=== PATIENT | male | born 1940 | race Caucasian/White ===

== ENCOUNTER 2017-02-19 15:34 | Outpatient (CLI) | payer MEDICARE, BC ==
[2017-02-19 17:40] LABS: Bilirubin Negative (Negative); Blood, Urine Negative (Negative); Clarity Clear (Clear); Glucose, Urine (Dipstick) Negative (Negative); Leukocyte Negative (Negative); Nitrite Negative (Negative); Protein, Urine (Dipstick) Negative (Neg-Trace); Urobilinogen 0.2 mg/dL (0.2-1.0); pH, Urine 6.5 (5.0-9.0)
[2017-02-19 17:54] LABS: ALT (SGPT) 20 U/L (8-55); AST (SGOT) 26 U/L (5-34); Albumin 4.7 g/dL (3.4-4.8); Alkaline Phosphatase 92 U/L (40-150); Anion Gap 19 mmol/L (10-20); BUN (Urea Nitrogen) 13 mg/dL (8.4-25.7); Bilirubin, Total 0.9 mg/dL (0.2-1.2); Calc. Creatinine Clearance 0 mL/min (70-130); Calcium 9.9 mg/dL (7.8-10.44); Carbon Dioxide 20 mmol/L (23-31); Cardiac Risk 2.8 (Less than 4.5); Chloride 98 mmol/L (98-107); Cholesterol 191 mg/dl (< 200 Desired); Estimated GFR-MDRD 70; Globulin 3.5 g/dL (2.4-3.5); Glucose 92 mg/dL (83-110); HDL Cholesterol 69 mg/dL (>60 Neg Risk); LDL Cholesterol, Calculated 74 mg/dL; Potassium 4.4 mmol/L (3.5-5.1); Protein, Total 8.2 g/dL (5.8-8.1); Sodium 133 mmol/L (136-145); Triglycerides 238 mg/dL (Less than 150); Uric Acid 4.8 mg/dL (3.5-7.2)
[2017-02-19 19:58] LABS: #Basophils 0.1 thou/uL (0.0-0.2); #Eosinphils 0.2 thou/uL (0.0-0.7); #Lymphocytes 1.7 thou/uL (1.20-3.40); #Monocytes 0.8 thou/uL (0.11-0.59); #Neutrophils 5.2 thou/uL (1.40-6.50); %Basophils 1.7 % (0.0-1.0); %Lymphocytes 20.7 % (21.0-51.0); %Monocytes 9.4 % (0.0-10.0); %Neutrophils 65.1 % (42.0-75.0); Hemoglobin 14.7 g/dL (14.0-18.0); Mean Corpuscular HGB CONC 31.6 g/dL (32.0-36.0); Mean Corpuscular Hemoglobin 30.2 pg (27.0-31.0); Mean Corpuscular Volume 95.4 fl (80.0-94.0); Mean Platelet Volume 5.3 fL (7.4-10.4); Platelet Count 237 thou/uL (130-400); RBC Distribution Width 12.3 % (11.5-14.5); Red Blood Cell (RBC) Count 4.89 mill/uL (4.70-6.10)
== END 2017-02-19 15:35 | disposition home or self-care (01) ==
LOC: NAVSJIPCSP 15:34
PROVIDERS: ATTEND Internal Medicine
DX: E03.9 Hypothyroidism, unspecified (principal); E78.5 Hyperlipidemia, unspecified; I10 Essential (primary) hypertension
CPT/HCPCS: 80053; 80061; 81003; 84443; 84550; 85025

== ENCOUNTER 2018-01-27 13:53 | Outpatient (CLI) | payer MEDICARE, BC ==
--- NOTE | 2018-01-27 17:03 | ULT ---
CAROTID ARTERIAL DOPPLER ULTRASOUND: 01/27/18 COMPARISON: None. HISTORY: Left carotid bruit. TECHNIQUE: Multiplanar johnson scale, sonographic imaging of the arterial structures of the neck obtained with colo r flow and spectral analysis. FINDINGS: There is scattered atherosclerotic calcification/atherosclerotic plaque within the distal CCA and the proximal ICA bilaterally. Antegrade blood flow and normal arterial waveforms are documented within the carotid and the vertebra l system bilaterally. VESSELS PSV (cm/s) EDV (cm/s) Right CCA 71 12 Right ICA 111 28 Right ECA 91 7 Left CCA 75 13 Left ICA 52 14 Left ECA 118 0 ICA/CCA ratios 1.4 on the right and 0.8 on the left. IMPRESSION: No hemodynamically significant stenosis on the basis of sonographic velocity criteria. POS: [facility]
== END 2018-01-27 13:54 | disposition home or self-care (01) ==
LOC: NAV ULT 13:53
PROVIDERS: ATTEND Internal Medicine
DX: R09.89 Other specified symptoms and signs involving the circulatory and respiratory systems (principal)
CPT/HCPCS: 93880

== ENCOUNTER 2019-06-06 13:18 | Emergency (ER) | payer MEDICARE, BC ==
[2019-06-06] MEDS ORDERED: Lidocaine 1% (PF) 30 ML VIAL ONE (13:39)
[2019-06-06] MEDS ORDERED: Bacitracin 1 PK ONE (14:15)
== END 2019-06-06 14:38 | disposition home or self-care (01) ==
LOC: NAV ERS 13:18
DX: S81.812A Laceration without foreign body, left lower leg, initial encounter (principal); E78.5 Hyperlipidemia, unspecified; M10.9 Gout, unspecified; I10 Essential (primary) hypertension; M48.061 Spinal stenosis, lumbar region without neurogenic claudication; Z79.899 Other long term (current) drug therapy; W26.8XXA Contact with other sharp object(s), not elsewhere classified, initial encounter; Y93.39 Activity, other involving climbing, rappelling and jumping off
CPT/HCPCS: 12002; J2001

== ENCOUNTER 2020-09-21 22:26 | Emergency (ER) | payer MEDICARE, BC ==
--- NOTE | 2020-09-21 23:12 | CT ---
CT of thehead: 09/21/2020 COMPARISON:None available HISTORY:Injury, trauma, pain TECHNIQUE: Serial axial CT imaging at2.5 mm intervals from thevertex through skull base without contr ast. Coronal and sagittal reformatted imaging obtained Findings:The imaged paranasal sinuses and mastoid air cells are well-aerated. There is no displaced c alvarial fracture. Scalp constantino are noted posteriorly on the left in the parietal region. No displaced calvarial fracture, intracranial hemorrhage, midline shift, or mass effect. Impression:No intracranial hemorrhage or displaced calvarial fracture.
== END 2020-09-21 23:40 | disposition home or self-care (01) ==
LOC: NAV ERS 22:26
DX: S01.01XA Laceration without foreign body of scalp, initial encounter (principal); H17.89 Other corneal scars and opacities; E03.9 Hypothyroidism, unspecified; E78.5 Hyperlipidemia, unspecified; M10.9 Gout, unspecified; M48.00 Spinal stenosis, site unspecified; I10 Essential (primary) hypertension; Z79.899 Other long term (current) drug therapy; W18.09XA Striking against other object with subsequent fall, initial encounter
CPT/HCPCS: 12001; 70450

== ENCOUNTER 2020-09-27 10:10 | Emergency (ER) | payer MEDICARE, BC | END 2020-09-27 10:35 | disposition home or self-care (01) | LOC: NAV ERS 10:10 | DX: S01.01XD Laceration without foreign body of scalp, subsequent encounter (principal); E03.9 Hypothyroidism, unspecified; E78.5 Hyperlipidemia, unspecified; E78.00 Pure hypercholesterolemia, unspecified; M10.9 Gout, unspecified; I10 Essential (primary) hypertension; Z79.899 Other long term (current) drug therapy ==

== ENCOUNTER 2022-09-05 15:20 | Outpatient (CLI) | payer MEDICARE, BC | END 2022-09-05 15:21 | disposition home or self-care (01) | LOC: NAV RAD 15:20 | PROVIDERS: ATTEND Family Medicine | DX: M25.551 Pain in right hip (principal); M16.11 Unilateral primary osteoarthritis, right hip ==

== ENCOUNTER 2025-04-12 09:29 | Emergency (ER) | payer MEDICARE, BC ==
[2025-04-12] MEDS ORDERED: Bacitracin 1 PK ONE (09:55)
[2025-04-12] MEDS ORDERED: Boostrix 0.5 ML (Tdap) VIAL (>/=7 yrs of age) ONE (09:56)
== END 2025-04-12 10:18 | disposition home or self-care (01) ==
LOC: NAV ERS 09:29
DX: S41.111A Laceration without foreign body of right upper arm, initial encounter (principal); I10 Essential (primary) hypertension; E03.9 Hypothyroidism, unspecified; W26.9XXA Contact with unspecified sharp object(s), initial encounter; Z79.899 Other long term (current) drug therapy
CPT/HCPCS: 90471; 90715